=== PATIENT | male | born 1965 | race African-American/Black ===

== ENCOUNTER 2022-07-31 10:54 | Inpatient (IN) | payer OTHER, MEDICAID ==
[~2022-07-31] VITALS: Ht 185.4 cm; Wt 89.0 kg
[~2022-07-31 10:54] MED LIST: HYDR-4833; LISI-716; METO25TA36; PREDPOW63; REGLAN
[2022-07-31] MEDS ORDERED: SODIUM CHLORIDE 0.9% 1,000 ML IV ONE ×3 (11:15→13:45)
[2022-07-31 11:58] LABS: Hematocrit 41.4 % (41.0-53.0); Hemoglobin 13.3 g/dL (13.5-17.5); Mean Corpuscular Hemoglobin 29.2 pg (28.0-32.0); Mean Corpuscular Hgb Conc. 32.2 g/dL (32.0-36.0); Mean Corpuscular Volume 90.8 fL (80.0-100.0); Red Blood Cells 4.55 10^6/uL (4.5-5.90); Red Cell Distribution Width 13.4 % (11.8-14.3); White Blood Cell 2.6 10^3/uL (4.4-10.8)
[2022-07-31 12:09] LABS: Basophils % (manual) 0 (0.0-2.0); Blast Cells 0; Metamyelocytes % 0; Myelocytes % 0; Promyelocytes % 0
[2022-07-31] MEDS ORDERED: cefTRIAXone 1GM/50ML D5W 50 ML IV ONE (12:45)
[2022-07-31 12:47] LABS: Alanine Aminotransferase 43 U/L (16-61); Albumin 3.9 g/dL (3.4-5.0); Alkaline Phosphatase 65 U/L (45-117); Anion Gap 7 (5-15); Aspartate Aminotransferase 40 U/L (15-37); BUN/Creatinine Ratio 8.2; Bilirubin, Total 0.5 mg/dL (0.2-1.0); Blood Urea Nitrogen 26 mg/dL (7-18); Calcium 8.5 mg/dL (8.5-10.1); Carbon Dioxide 25 mmol/L (21-32); Chloride 99 mmol/L (98-107); GFR African American 26 mL/min; GFR Non-African American 21 mL/min; Glucose 90 mg/dL (74-106); Lipase 75 U/L (73-393); Potassium 5.2 mmol/L (3.5-5.1); Sodium 131 mmol/L (136-145); Total Protein 6.9 g/dL (6.4-8.2)
[2022-07-31] MEDS ORDERED: ACETAMINOPHEN 325 MG TAB PO ONE (13:00)
[2022-07-31 13:36] LABS: Urine Bacteria NONE SEEN /hpf (None Seen); Urine Blood 2+ /uL (Negative); Urine Hyaline Cast MOD /lpf (0 - 2); Urine Mucus FEW (None Seen); Urine Specific Gravity 1.023 (1.001-1.035); Urine WBC 7 /hpf (0 - 3)
[2022-07-31 13:49] LABS: Band Neutrophils % (manual) 8; Eosinophils % (manual) 4 (0-7); Lymphocytes % (manual) 10 (10.0-50.0); Monocytes % (manual) 17 (0-12); Reactive Lymphocytes 3
[2022-07-31 14:21] LABS: Lactic Acid w/Reflex 2.2 mmol/L (0.4-2.0)
[2022-07-31] MEDS ORDERED: MORPHINE SULFATE INJ 2 MG/ml SYRG IV PRN (15:15)
[2022-07-31] MEDS ORDERED: ONDANSETRON HCL 4 MG/2 ML VIAL IV PRN (15:15)
[2022-07-31] MEDS ORDERED: NICOTINE 21MG/24 HR TOPICAL PATCH TD ONE (16:15)
[2022-07-31] MEDS: SODIUM CHLORIDE 0.9% 1,000 ML IV SCH ×2 (16:43→23:35)
[2022-07-31 18:15] LABS: Sodium Urine 15 mmol/L (40-220)
[2022-07-31 18:25] LABS: Creatinine, Urine 462 mg/dL (30.0-125.0)
[2022-07-31] MEDS ORDERED: SODIUM ZIRCONIUM CYCL 10 GM PAK PO ONE (19:45)
[2022-07-31 21:51] VITALS: BP 122/70
[2022-07-31 22:00] VITALS: BP 122/70
[2022-07-31] MEDS: MEROPENEM 1GM IVPB 100 ML IV SCH (22:13)
[2022-08-01 05:07] VITALS: BP 113/60
[2022-08-01 05:09] LABS: Red Cell Distribution Width 13.4 % (11.8-14.3)
[2022-08-01 05:11] LABS: Hematocrit 38.2 % (41.0-53.0); Hemoglobin 12.5 g/dL (13.5-17.5); Mean Corpuscular Hemoglobin 29.2 pg (28.0-32.0); Mean Corpuscular Hgb Conc. 32.8 g/dL (32.0-36.0)
[2022-08-01 05:27] LABS: Albumin 3.3 g/dL (3.4-5.0); BUN/Creatinine Ratio 11.7; Calcium 8.4 mg/dL (8.5-10.1); Potassium 4.8 mmol/L (3.5-5.1)
[2022-08-01 05:30] LABS: Bilirubin, Total 0.4 mg/dL (0.2-1.0); Total Protein 6.1 g/dL (6.4-8.2)
[2022-08-01 05:33] LABS: White Blood Cell 1.6 10^3/uL (4.4-10.8)
[2022-08-01 05:34] LABS: Basophils % (manual) 0 (0.0-2.0); Blast Cells 0; Metamyelocytes % 0; Myelocytes % 0; Promyelocytes % 0; Reactive Lymphocytes 0
[2022-08-01 09:00] VITALS: BP 123/77
[2022-08-01] MEDS ORDERED: PANTOPRAZOLE 40 MG/10 ML VIAL INJ IV SCH (10:00)
[2022-08-01] MEDS: SODIUM CHLORIDE 0.9% 1,000 ML IV SCH ×3 (10:39→18:40)
[2022-08-01] MEDS: ENOXAPARIN SOD 40 MG/0.4 ML SYRINGE SC SCH (10:42)
[2022-08-01] MEDS: MEROPENEM 1GM IVPB 100 ML IV SCH ×2 (10:42→21:02)
[2022-08-01 12:51] LABS: Band Neutrophils % (manual) 7; Eosinophils % (manual) 8 (0-7); Lymphocytes % (manual) 48 (10.0-50.0); Monocytes % (manual) 16 (0-12)
[2022-08-01 13:00] VITALS: BP 110/69
[2022-08-01 16:42] VITALS: BP 139/84
[2022-08-01 22:00] VITALS: BP 133/81
[2022-08-02] MEDS: MEROPENEM 1GM IVPB 100 ML IV SCH ×2 (04:02→12:09)
[2022-08-02] MEDS: SODIUM CHLORIDE 0.9% 1,000 ML IV SCH ×2 (04:15→17:00)
[2022-08-02 05:00] VITALS: BP 121/73
[2022-08-02 05:05] LABS: Protein, Urine 18.9 mg/dL (0.0-11.9)
[2022-08-02 07:14] LABS: Hemoglobin 13.5 g/dL (13.5-17.5); Mean Corpuscular Hemoglobin 29.2 pg (28.0-32.0)
[2022-08-02 07:21] LABS: Hematocrit 41.7 % (41.0-53.0); Mean Corpuscular Hgb Conc. 32.4 g/dL (32.0-36.0); Mean Corpuscular Volume 90.2 fL (80.0-100.0); Red Blood Cells 4.62 10^6/uL (4.5-5.90); Red Cell Distribution Width 13.1 % (11.8-14.3)
[2022-08-02 07:29] LABS: Albumin 3.8 g/dL (3.4-5.0); Calcium 8.8 mg/dL (8.5-10.1); Potassium 4.7 mmol/L (3.5-5.1)
[2022-08-02 07:32] LABS: BUN/Creatinine Ratio 13.9; Bilirubin, Total 0.4 mg/dL (0.2-1.0); Total Protein 6.7 g/dL (6.4-8.2)
[2022-08-02 07:37] LABS: White Blood Cell 1.8 10^3/uL (4.4-10.8)
[2022-08-02 07:39] LABS: Basophils % (manual) 0 (0.0-2.0); Blast Cells 0; Metamyelocytes % 0; Myelocytes % 0; Promyelocytes % 0; Reactive Lymphocytes 0
[2022-08-02 09:00] VITALS: BP 124/72
[2022-08-02 09:42] LABS: Band Neutrophils % (manual) 6; Eosinophils % (manual) 8 (0-7); Lymphocytes % (manual) 50 (10.0-50.0); Monocytes % (manual) 19 (0-12)
[2022-08-02] MEDS: FILGRASTIM(TBO) 480 MCG/0.8 ML SYRG SC SCH ×2 (10:00→12:10)
[2022-08-02] MEDS: ENOXAPARIN SOD 40 MG/0.4 ML SYRINGE SC SCH ×2 (10:00→11:00)
[2022-08-02 13:00] VITALS: BP 127/74
[2022-08-02 16:51] VITALS: BP 115/66
[2022-08-02 21:52] VITALS: BP 108/70
[2022-08-02] MEDS: CEFEPIME 2 GM in SODIUM CHL 0.9% 50 ML IV SCH (22:09)
[2022-08-03] MEDS: SODIUM CHLORIDE 0.9% 1,000 ML IV SCH ×2 (00:30→10:30)
[2022-08-03 04:48] VITALS: BP 106/68
[2022-08-03 06:40] LABS: Basophils # (auto) 0.2 10 ^3/uL (0-0.2); Basophils % (auto) 1.7 % (0.0-2.0); Eosinophils # (auto) 0.1 10 ^3/uL (0-0.8); Hematocrit 41.1 % (41.0-53.0); Hemoglobin 13.6 g/dL (13.5-17.5); Lymphocytes # (auto) 1.3 10 ^3/uL (0.4-5.4); Lymphocytes % (auto) 10.3 % (10.0-50.0); Mean Corpuscular Hemoglobin 29.7 pg (28.0-32.0); Mean Corpuscular Hgb Conc. 33.2 g/dL (32.0-36.0); Mean Corpuscular Volume 89.5 fL (80.0-100.0); Monocytes # (auto) 0.7 10 ^3/uL (0-1.3); Monocytes % (auto) 5.3 % (0.0-12.0); Neutrophils # (auto) 10.7 10 ^3/uL (1.6-8.6); Neutrophils % (auto) 81.7 % (37.0-80.0); Red Blood Cells 4.59 10^6/uL (4.5-5.90); Red Cell Distribution Width 13.2 % (11.8-14.3); White Blood Cell 13.1 10^3/uL (4.4-10.8)
[2022-08-03 06:48] LABS: Potassium 4.6 mmol/L (3.5-5.1)
[2022-08-03 06:49] LABS: Albumin 3.4 g/dL (3.4-5.0); BUN/Creatinine Ratio 12.3; Calcium 8.7 mg/dL (8.5-10.1)
[2022-08-03 06:52] LABS: Bilirubin, Total 0.5 mg/dL (0.2-1.0); Total Protein 6.8 g/dL (6.4-8.2)
[2022-08-03 08:30] VITALS: BP 112/69
[2022-08-03 08:46] VITALS: BP 112/69
[2022-08-03] MEDS: FILGRASTIM(TBO) 480 MCG/0.8 ML SYRG SC SCH (10:00)
[2022-08-03] MEDS: ENOXAPARIN SOD 40 MG/0.4 ML SYRINGE SC SCH (10:00)
[2022-08-03] MEDS: CEFEPIME 2 GM in SODIUM CHL 0.9% 50 ML IV SCH (10:27)
[2022-08-03 13:29] VITALS: BP 117/74
[2022-08-03 16:29] VITALS: BP 113/70
[2022-08-03 18:10] VITALS: BP 113/70
== END 2022-08-03 18:32 | disposition home or self-care (01) | DRG 872 ==
LOC: ER 10:54 → OVERFLOW 15:09 → WEST WING 20:59
PROVIDERS: ADMIT Nurse Practitioner Family; ATTEND Student in an Organized Health Care Education/Training Program
DX: A41.9 Sepsis, unspecified organism (principal); E87.1 Hypo-osmolality and hyponatremia; N10 Acute pyelonephritis; N17.9 Acute kidney failure, unspecified; Z20.822 Contact with and (suspected) exposure to COVID-19; E78.5 Hyperlipidemia, unspecified; E86.0 Dehydration; E87.5 Hyperkalemia; F17.210 Nicotine dependence, cigarettes, uncomplicated; I12.9 Hypertensive chronic kidney disease with stage 1 through stage 4 chronic kidney disease, or unspecified chronic kidney disease; N18.9 Chronic kidney disease, unspecified; Z86.16 Personal history of COVID-19; Z80.42 Family history of malignant neoplasm of prostate; Z87.442 Personal history of urinary calculi; Z87.440 Personal history of urinary (tract) infections
CPT/HCPCS: 36415; 74176; 76775; 80053; 81001; 82306; 82570; 83605; 83690; 83970; 84100; 84156; 84300; 84484; 85007; 85025; 85027; 87040; 87086; 87426; 93005; 93970; 96361; 96365; C9113; G0378; J0696; J1447; J2185

== ENCOUNTER → 2023-04-16 | Outpatient (CLI) | payer OTHER, MEDICAID ==
[~2023-04-16] MED LIST changes: -LISI-716; +LISI10TA34
[2023-04-16 09:43] LABS: Basophils # (auto) 0 10 ^3/uL (0-0.2); Hemoglobin 14.7 g/dL (13.5-17.5); Lymphocytes # (auto) 0.9 10 ^3/uL (0.4-5.4); Monocytes # (auto) 0.2 10 ^3/uL (0-1.3); Neutrophils # (auto) 0.6 10 ^3/uL (1.6-8.6)
[2023-04-16 09:45] LABS: Basophils % (auto) 1.3 % (0.0-2.0); Eosinophils # (auto) 0 10 ^3/uL (0-0.8); Eosinophils % (auto) 2.2 % (0.0-7.0); Hematocrit 43.3 % (41.0-53.0); Lymphocytes % (auto) 49.6 % (10.0-50.0); Mean Corpuscular Hemoglobin 30.6 pg (28.0-32.0); Mean Corpuscular Hgb Conc. 33.9 g/dL (32.0-36.0); Mean Corpuscular Volume 90.1 fL (80.0-100.0); Neutrophils % (auto) 32.9 % (37.0-80.0); Nucleated Red Blood Cells % 0.1 %
[2023-04-16 09:47] LABS: Urine Bacteria NONE SEEN /hpf (None Seen); Urine Blood Negative /uL (Negative); Urine Clarity Clear (Clear); Urine Color Yellow (Yellow); Urine Mucus FEW (None Seen); Urine Protein, UAD TRACE (Negative); Urine Specific Gravity 1.028 (1.001-1.035); Urine Urobilinogen Normal (Negative); Urine WBC 3 /hpf (0 - 3)
[2023-04-16 10:18] LABS: White Blood Cell 1.8 10^3/uL (4.4-10.8)
[2023-04-16 10:35] LABS: Alanine Aminotransferase 10 U/L (7-40); Albumin 4.7 g/dL (3.2-4.8); Alkaline Phosphatase 78 U/L (46-116); Anion Gap 7 (5-15); Aspartate Aminotransferase 12 U/L (13-40); BUN/Creatinine Ratio 5.3 (10.0-20.0); Blood Urea Nitrogen 5 mg/dL (9-23); Calcium 9.4 mg/dL (8.5-10.1); Carbon Dioxide 24 mmol/L (20-30); Chloride 106 mmol/L (98-107); Cholesterol 168 mg/dL (< 200); Glucose 89 mg/dL (74-106); HDL Cholesterol 39 mg/dL (40-59); LDL Cholesterol 111 mg/dL (< 100); Potassium 4.2 mmol/L (3.5-5.1); Sodium 137 mmol/L (136-145); Triglycerides 89 mg/dL (< 150)
[2023-04-16 10:36] LABS: Bilirubin, Total 0.6 mg/dL (0.2-1.0); Total Protein 7.7 g/dL (5.7-8.2)
[2023-04-16 10:38] LABS: Folate (Folic Acid) 19.69 ng/mL (>5.38)
[2023-04-16 11:19] LABS: Uric Acid 3.5 mg/dL (3.7-9.2)
[2023-04-16 11:21] LABS: Magnesium 2.1 mg/dL (1.6-2.6)
== END | disposition home or self-care (01) ==
LOC: LAB 09:13
PROVIDERS: ATTEND Internal Medicine
DX: E61.2 Magnesium deficiency (principal); E79.0 Hyperuricemia without signs of inflammatory arthritis and tophaceous disease; R94.6 Abnormal results of thyroid function studies; R82.998 Other abnormal findings in urine; E55.9 Vitamin D deficiency, unspecified; D51.9 Vitamin B12 deficiency anemia, unspecified; R82.79 Other abnormal findings on microbiological examination of urine; R73.09 Other abnormal glucose; E78.49 Other hyperlipidemia; R68.89 Other general symptoms and signs; R78.89 Finding of other specified substances, not normally found in blood
CPT/HCPCS: 36415; 80053; 80061; 81001; 82306; 82607; 82746; 83036; 83735; 84443; 84550; 85025; 87086

== ENCOUNTER → 2023-07-10 | Outpatient (CLI) | payer OTHER, MEDICAID | END | disposition home or self-care (01) | LOC: LAB 15:19 | PROVIDERS: ATTEND Nurse Practitioner Family | DX: N39.0 Urinary tract infection, site not specified (principal); Z68.24 Body mass index [BMI] 24.0-24.9, adult | CPT/HCPCS: 87086 ==

== ENCOUNTER → 2023-08-12 | Outpatient (CLI) | payer OTHER, MEDICAID ==
[2023-08-12 08:56] LABS: Basophils # (auto) 0 10 ^3/uL (0-0.2); Eosinophils # (auto) 0 10 ^3/uL (0-0.8); Lymphocytes # (auto) 0.8 10 ^3/uL (0.4-5.4); Lymphocytes % (auto) 54.9 % (10.0-50.0); Monocytes # (auto) 0.2 10 ^3/uL (0-1.3); Neutrophils # (auto) 0.4 10 ^3/uL (1.6-8.6); Red Cell Distribution Width 13.6 % (11.8-14.3)
[2023-08-12 08:57] LABS: Basophils % (auto) 1.6 % (0.0-2.0); Eosinophils % (auto) 1.6 % (0.0-7.0); Hematocrit 46.9 % (41.0-53.0); Hemoglobin 15.6 g/dL (13.5-17.5); Mean Corpuscular Hemoglobin 30.3 pg (28.0-32.0); Mean Corpuscular Hgb Conc. 33.2 g/dL (32.0-36.0); Mean Corpuscular Volume 91.1 fL (80.0-100.0); Monocytes % (auto) 14.3 % (0.0-12.0); Neutrophils % (auto) 27.6 % (37.0-80.0); Nucleated Red Blood Cells % 0.4 %; Red Blood Cells 5.14 10^6/uL (4.5-5.90)
[2023-08-12 09:29] LABS: Chloride 106 mmol/L (98-107); Potassium 4.4 mmol/L (3.5-5.1); Sodium 136 mmol/L (136-145)
[2023-08-12 09:30] LABS: Anion Gap 4 (5-15); Calcium 9.9 mg/dL (8.5-10.1); Carbon Dioxide 26 mmol/L (20-30)
[2023-08-12 09:31] LABS: Urine Bacteria NONE SEEN /hpf (None Seen); Urine Blood Negative /uL (Negative); Urine Clarity Clear (Clear); Urine Color Yellow (Yellow); Urine Mucus FEW (None Seen); Urine Protein, UAD TRACE (Negative); Urine Specific Gravity 1.024 (1.001-1.035); Urine Urobilinogen Normal (Negative); Urine WBC 1 /hpf (0 - 3); Urine pH 6.5 (5.0-8.0)
[2023-08-12 09:35] LABS: Alkaline Phosphatase 81 U/L (46-116); BUN/Creatinine Ratio 5.9 (10.0-20.0); Blood Urea Nitrogen 6 mg/dL (9-23); Glucose 89 mg/dL (74-106); Triglycerides 82 mg/dL (< 150)
[2023-08-12 09:36] LABS: LDL Cholesterol 107 mg/dL (< 100)
[2023-08-12 09:37] LABS: Albumin 4.9 g/dL (3.2-4.8); Aspartate Aminotransferase 28 U/L (13-40); Bilirubin, Total 0.7 mg/dL (0.2-1.0); Cholesterol 163 mg/dL (< 200); HDL Cholesterol 37 mg/dL (40-59); Total Protein 7.8 g/dL (5.7-8.2)
[2023-08-12 09:42] LABS: White Blood Cell 1.5 10^3/uL (4.4-10.8)
[2023-08-12 11:57] LABS: Alanine Aminotransferase 19 U/L (7-40); Uric Acid 3.9 mg/dL (3.7-9.2)
[2023-08-12 12:38] LABS: Folate (Folic Acid) 19.84 ng/mL (>5.38)
== END | disposition home or self-care (01) ==
LOC: LAB 08:39
PROVIDERS: ATTEND Internal Medicine
DX: D51.9 Vitamin B12 deficiency anemia, unspecified (principal); R78.89 Finding of other specified substances, not normally found in blood; E78.9 Disorder of lipoprotein metabolism, unspecified; R68.89 Other general symptoms and signs; R73.09 Other abnormal glucose; E85.9 Amyloidosis, unspecified
CPT/HCPCS: 36415; 80053; 80061; 81001; 82306; 82607; 82746; 83036; 83735; 84443; 84550; 85025; 87086

== ENCOUNTER → 2024-04-02 | Outpatient (CLI) | payer OTHER, MEDICAID ==
[2024-04-02 10:02] LABS: Urine Bacteria None Seen /hpf (None Seen)
[2024-04-02 10:19] LABS: Hemoglobin 14.1 g/dL (13.5-17.5)
[2024-04-02 10:23] LABS: Hematocrit 41.4 % (41.0-53.0); Mean Corpuscular Hemoglobin 31.5 pg (28.0-32.0); Mean Corpuscular Hgb Conc. 34.2 g/dL (32.0-36.0); Mean Corpuscular Volume 92.2 fL (80.0-100.0); Platelet Count (auto) 143 10^3/uL (140-450); Red Blood Cells 4.49 10^6/uL (4.5-5.90)
[2024-04-02 10:33] LABS: Urine Blood Negative /uL (Negative); Urine Clarity Clear (Clear); Urine Color Light-Yellow (Yellow); Urine Protein, UAD Negative (Negative); Urine Specific Gravity 1.021 (1.001-1.035); Urine Urobilinogen Normal (Negative); Urine WBC 3 /hpf (0 - 3); Urine pH 6.5 (5.0-9.0)
[2024-04-02 10:39] LABS: White Blood Cell 1.7 10^3/uL (4.4-10.8)
[2024-04-02 10:41] LABS: Basophils % (manual) 0 (0.0-2.0); Blast Cells 0; Metamyelocytes % 0; Myelocytes % 0; Promyelocytes % 0; Reactive Lymphocytes 0
[2024-04-02 10:48] LABS: % Iron Saturation 43.5 % (20-55)
[2024-04-02 10:49] LABS: Alanine Aminotransferase 16 U/L (7-40); Albumin 4.7 g/dL (3.2-4.8); Alkaline Phosphatase 89 U/L (46-116); Anion Gap 5 (5-15); Aspartate Aminotransferase 15 U/L (13-40); BUN/Creatinine Ratio 7.8 (10.0-20.0); Blood Urea Nitrogen 7 mg/dL (9-23); Calcium 9.9 mg/dL (8.7-10.4); Carbon Dioxide 28 mmol/L (20-31); Chloride 105 mmol/L (98-107); Cholesterol 155 mg/dL (< 200); Glucose 91 mg/dL (74-106); HDL Cholesterol 48 mg/dL (40-59); LDL Cholesterol 89 mg/dL (< 100); Magnesium 2.1 mg/dL (1.6-2.6); Potassium 4.3 mmol/L (3.5-5.1); Sodium 138 mmol/L (136-145); Triglycerides 106 mg/dL (< 150)
[2024-04-02 10:50] LABS: Bilirubin, Total 0.7 mg/dL (0.2-1.0); Total Protein 7.4 g/dL (5.7-8.2)
[2024-04-02 10:59] LABS: Folate (Folic Acid) 19.22 ng/mL (>5.38)
[2024-04-02 11:55] LABS: Band Neutrophils % (manual) 1; Eosinophils % (manual) 3 (0-7); Lymphocytes % (manual) 46 (10.0-50.0); Monocytes % (manual) 9 (0-12); Platelet Estimate Adequate
[2024-04-03 08:06] LABS: PSA Free 0.44 ng/mL; Prostate Specific Antigen 3.9 ng/mL (0.0-4.0); Thyroxine (T4) 7.9 ug/dL (4.5-12.0)
== END | disposition home or self-care (01) ==
LOC: LAB 09:26
PROVIDERS: ATTEND Nurse Practitioner Family
DX: I10 Essential (primary) hypertension (principal); F33.9 Major depressive disorder, recurrent, unspecified; R63.4 Abnormal weight loss; Z86.73 Personal history of transient ischemic attack (TIA), and cerebral infarction without residual deficits
CPT/HCPCS: 36415; 80053; 80061; 81001; 82043; 82306; 82607; 82746; 83036; 83540; 83550; 83735; 84154; 84402; 84403; 84436; 84443; 85007; 85027; 87086